=== PATIENT | male | born 1950 | race Caucasian/White ===

== ENCOUNTER 2016-08-22 18:08 | Outpatient (CLI) | payer MEDICARE | END 2016-08-22 18:09 | disposition home or self-care (01) | DX: M79.605 Pain in left leg (principal) ==

== ENCOUNTER 2016-09-14 15:59 | Emergency (ER) | payer MEDICARE ==
[2016-09-14] MEDS ORDERED: ONDANSETRON ODT 4 MG TABLET TL STA (17:39)
[2016-09-14] MEDS ORDERED: ONDANSETRON ODT 4 MG TABLET ONE (17:42)
== END 2016-09-14 17:53 | disposition home or self-care (01) ==
DX: R53.1 Weakness (principal); R53.81 Other malaise; R11.0 Nausea; R35.0 Frequency of micturition; R03.0 Elevated blood-pressure reading, without diagnosis of hypertension; E11.9 Type 2 diabetes mellitus without complications; Z79.4 Long term (current) use of insulin; F17.200 Nicotine dependence, unspecified, uncomplicated
CPT/HCPCS: 36415; 80053; 81001; 82009; 83690; 83735; 84484; 85025; 87275; 87276; 93005; 93010; 99284; Q0162

== ENCOUNTER 2016-11-23 07:55 | Outpatient (CLI) | payer MEDICARE | END 2016-11-23 07:56 | disposition home or self-care (01) | DX: E11.9 Type 2 diabetes mellitus without complications (principal) ==

== ENCOUNTER 2017-02-19 15:20 | Outpatient (CLI) | payer MEDICARE | END 2017-02-19 15:21 | disposition home or self-care (01) | DX: E11.65 Type 2 diabetes mellitus with hyperglycemia (principal) ==

== ENCOUNTER 2017-03-01 10:14 | Outpatient (CLI) | payer MEDICARE ==
--- NOTE | 2017-03-01 15:51 | XRAY Report ---
RIGHT HIP AND PELVIS: 03/01/2017 CLINICAL INDICATION: Pain. FINDINGS: Frontal view of the hips and pelvis and frogleg lateral view of the right hip demonstrate moderate osteoarthritis. There is no evidence of acute fracture or dislocation. No radiopaque foreign body is seen in the soft tissues. IMPRESSION: MODERATE OSTEOARTHRITIS. JOB #: [id number] EXT JOB #:[id number]
== END 2017-03-01 10:15 | disposition home or self-care (01) ==
LOC: DI 10:14
PROVIDERS: ATTEND Internal Medicine
DX: M16.11 Unilateral primary osteoarthritis, right hip (principal)

== ENCOUNTER 2017-07-10 14:26 | Outpatient (CLI) | payer MEDICARE ==
--- NOTE | 2017-07-10 18:43 | XRAY Report ---
THREE VIEW LUMBAR SPINE: 07/10/2017 CLINICAL INDICATION: Chronic back pain. AP, lateral, coned-down views of the lumbar spine demonstrate moderate degenerative disk and facet di sease. There is osseous fusion of the L1-2 disk space. The bowel gas pattern is unremarkable. IMPRESSION: MODERATE DEGENERATIVE CHANGES. NO EVIDENCE OF ACUTE FRACTURE. JOB #: [id number] EXT JOB #:[id number]
== END 2017-07-10 14:27 | disposition home or self-care (01) ==
LOC: DI 14:26
PROVIDERS: ATTEND Nurse Practitioner Primary Care
DX: M51.36 Other intervertebral disc degeneration, lumbar region (principal); M47.896 Other spondylosis, lumbar region
CPT/HCPCS: 72100

== ENCOUNTER 2017-07-13 12:53 | Outpatient (CLI) | payer MEDICARE | END 2017-07-13 12:54 | disposition home or self-care (01) | LOC: DI 12:53 | PROVIDERS: ATTEND Nurse Practitioner Primary Care | DX: Z53.9 Procedure and treatment not carried out, unspecified reason (principal) ==

== ENCOUNTER 2017-09-24 08:00 | Outpatient (CLI) | payer MEDICARE ==
[2017-09-24 18:34] LABS: HB2 TOTAL 12.4 g/dL; HEMOGLOBIN A1C 0.99 g/dL; HEMOGLOBIN A1C % 9.5 % (4.6-6.2)
== END 2017-09-24 08:01 | disposition home or self-care (01) ==
LOC: LAB.R 08:00
PROVIDERS: ATTEND Internal Medicine
DX: E11.65 Type 2 diabetes mellitus with hyperglycemia (principal)
CPT/HCPCS: 83036

== ENCOUNTER 2018-01-22 08:00 | Outpatient (CLI) | payer MEDICARE ==
[2018-01-22 14:26] LABS: ALT ALANINE AMINOTRANSFERASE 28 IU/L (10-60); AST ASPARTATE AMINOTRANSFERASE 25 IU/L (10-42); CHOL/HDL RATIO 3.5 (<5.0); CHOLESTEROL 134 mg/dL; HDL CHOLESTEROL 38 mg/dL; LDL CHOLESTEROL,CALCULATED 65 mg/dL; LDL/HDL RATIO 1.7 (<3.6); VLDL CHOLESTEROL 31 mg/dL
[2018-01-22 14:28] LABS: HB2 TOTAL 13.7 g/dL; HEMOGLOBIN A1C 0.8 g/dL; HEMOGLOBIN A1C % 7.5 % (4.6-6.2)
== END 2018-01-22 08:01 | disposition home or self-care (01) ==
LOC: LAB.R 08:00
PROVIDERS: ATTEND Internal Medicine
DX: E11.65 Type 2 diabetes mellitus with hyperglycemia (principal); E78.5 Hyperlipidemia, unspecified
CPT/HCPCS: 80061; 83036; 83721; 84450; 84460

== ENCOUNTER 2018-04-02 08:00 | Outpatient (CLI) | payer MEDICARE | END 2018-04-02 08:01 | LOC: LAB.R 08:00 | PROVIDERS: ATTEND Physician Assistant Medical | DX: J02.9 Acute pharyngitis, unspecified (principal) | CPT/HCPCS: 87070 ==

== ENCOUNTER 2018-05-22 15:08 | Outpatient (CLI) | payer MEDICARE ==
[2018-05-22 18:56] LABS: HB2 TOTAL 12.6 g/dL; HEMOGLOBIN A1C 0.73 g/dL; HEMOGLOBIN A1C % 7.5 % (4.6-6.2)
== END 2018-05-22 15:09 | disposition home or self-care (01) ==
LOC: LAB.R 15:08
PROVIDERS: ATTEND Internal Medicine
DX: E11.65 Type 2 diabetes mellitus with hyperglycemia (principal)
CPT/HCPCS: 83036

== ENCOUNTER 2018-05-22 16:54 | Outpatient (CLI) | payer MEDICARE ==
--- NOTE | 2018-05-23 11:47 | XRAY Report ---
Reason: FOREARM PAIN,LEFT Procedure Date: 05/22/2018 Accession Number: [id number] / [id number] Procedure: XR - Wrist 2 View LT CPT Code: FULL RESULT: EXAM: LEFT WRIST RADIOGRAPHY EXAM DATE: 05/22/2018 05:06 PM. CLINICAL HISTORY: Forearm pain, left. COMPARISON: None. TECHNIQUE: 2 views. FINDINGS: Bones: Normal. No fractures or bone lesions. Joints: Normal. No subluxations. Soft Tissues: Normal. No soft tissue swelling. IMPRESSION: No fracture or dislocation. RADIA
--- NOTE | 2018-05-23 11:47 | XRAY Report ---
Reason: FOREARM PAIN,LEFT Procedure Date: 05/22/2018 Accession Number: [id number] / [id number] Procedure: XR - Forearm LT CPT Code: FULL RESULT: EXAM: LEFT FOREARM RADIOGRAPHY EXAM DATE: 05/22/2018 05:06 PM. CLINICAL HISTORY: Forearm pain, left. COMPARISON: None. TECHNIQUE: 2 views. FINDINGS: Bones: Normal. No fractures or bone lesions. Joints: Normal. No effusions or subluxations in the visualized wrist or elbow joints. Soft Tissues: Normal. No soft tissue swelling. IMPRESSION: Normal forearm radiography. RADIA
== END 2018-05-22 16:55 | disposition home or self-care (01) ==
LOC: DI 16:54
PROVIDERS: ATTEND Nurse Practitioner Primary Care
DX: M79.632 Pain in left forearm (principal); S59.912A Unspecified injury of left forearm, initial encounter; E11.65 Type 2 diabetes mellitus with hyperglycemia
CPT/HCPCS: 83036

== ENCOUNTER 2018-11-29 19:27 | Emergency (ER) | payer MEDICARE ==
--- NOTE | 2018-11-29 20:05 | ED Physician Documentation ---
History of Present Illness - Stated complaint Stated Complaint: ANXIETY ATTACK - Chief complaint Chief Complaint: MHE - History obtained from History obtained from: Patient - History of Present Illness Timing: How many days ago (4) - Additonal information Additional information: 68-year-old male who is been taking Ativan for some time on a as needed basis up to 3 mg a day some days not at all has been out of his Ativan for 4 days. His physician retired and despite multiple calls to the clinic they were unable to secure a supply of medication. The patient is come to the emergency department this evening unable to sleep for the past 2 nights and having a variety of symptoms. Review of Systems Constitutional: denies: Fever Eyes: denies: Decreased vision Ears: denies: Ear pain Nose: denies: Rhinorrhea / runny nose, Congestion Throat: denies: Sore throat Cardiac: denies: Chest pain / pressure, Palpitations Respiratory: denies: Dyspnea, Cough GI: reports: Abdominal Pain, Nausea. denies: Vomiting : denies: Dysuria, Frequency Skin: denies: Rash Musculoskeletal: denies: Neck pain, Back pain Neurologic: denies: Generalized weakness, Focal weakness, Numbness Psychiatric: reports: Insomnia PD PAST MEDICAL HISTORY - Past Medical History Cardiovascular: None Respiratory: None Endocrine/Autoimmune: Type 2 diabetes : Kidney stones Psych: Anxiety - Past Surgical History Past Surgical History: Yes - Present Medications Home Medications: Ambulatory Orders Medication Instructions Recorded Confirmed Insulin Aspart (Vial) [NovoLOG] 16 unit SQ TID 09/05/13 09/14/16 Insulin Glargine [Lantus] 20 unit SUBQ QPM 09/05/13 09/14/16 LORazepam INTENSOL [Ativan] 1 mg PO 09/05/13 09/05/13 Lisinopril 20 mg PO DAILY 09/05/13 09/14/16 Oxycodone HCl/Acetaminophen 2 each PO 3-4XD 09/05/13 09/14/16 [Percocet 10-325 mg Tablet] Pravastatin Sodium [Pravachol] 80 mg PO DAILY 09/05/13 09/14/16 metFORMIN [Glucophage] 1,000 mg PO BID 09/05/13 09/14/16 oxyCODONE ER [OxyCONTIN] 80 mg PO Q12HR 09/05/13 09/14/16 Amlodipine Besylate 2.5 mg PO DAILY 12/21/13 09/14/16 Tamsulosin [Flomax] 0.4 mg BID 09/14/16 09/14/16 LORazepam [Ativan] 1 mg PO Q6HR PRN #12 tablet 11/29/18 - Allergies Allergies/Adverse Reactions: Allergies Allergy/AdvReac Type Severity Reaction Status Date / Time No Known Drug Allergies Allergy Verified 09/14/16 16:13 - Social History Does the pt smoke?: Yes Smoking Status: Current every day smoker Does the pt drink ETOH?: No Does the pt have substance abuse?: No - Immunizations Immunizations are current?: No - POLST Patient has POLST: No PD ED PE NORMAL - Vitals Vital signs reviewed: Yes (hypertnesive marked) - General General: Alert and oriented X 3, No acute distress, Well developed/nourished - HEENT HEENT: Atraumatic, PERRL, EOMI - Neck Neck: Supple, no meningeal sign, No bony TTP - Cardiac Cardiac: RRR, No murmur - Respiratory Respiratory: No respiratory distress, Clear bilaterally - Abdomen Abdomen: Soft, Non tender - Back Back: No CVA TTP, No spinal TTP - Derm Derm: Normal color, Warm and dry, No rash - Extremities Extremities: No deformity, No edema - Neuro Neuro: Alert and oriented X 3, tele rn 2-12 intact, No motor deficit, No sensory deficit, Normal speech Eye Opening: Spontaneous Motor: Obeys Commands Verbal: Oriented GCS Score: 15 - Psych Psych: Normal mood, Normal affect Results - Vitals Vitals: Vital Signs - 24 hr 11/29/18 19:39 Temperature 37.1 C Heart Rate 86 Respiratory 20 Rate Blood Pressure 223/100 H O2 Saturation 97 Oxygen O2 Source Room air PD MEDICAL DECISION MAKING - ED course Complexity details: considered differential, d/w patient, d/w family ED course: 68-year-old male 4 days without Ativan appears well on exam, has complaints of feeling quite off and appears to have symptoms consistent with benzodiazepine withdrawal. He is administered Ativan orally, we will provide a short course until he is able to get into see his physician on the . Departure - Departure Disposition: 01 Home, Self Care Clinical Impression: Benzodiazepine withdrawal Qualifiers: Complication of substance-induced condition: uncomplicated Qualified Code(s): F13.230 - Sedative, hypnotic or anxiolytic dependence with withdrawal, uncomplicated Condition: Stable Instructions: ED Withdrawal Benzodiazepine Follow-Up: Christian Colon MD [Primary Care Provider] - Prescriptions: LORazepam [Ativan] 1 mg PO Q6HR PRN #12 tablet PRN Reason: Anxiety
[2018-11-29] MEDS ORDERED: LORazepam 1 MG TABLET PO STA (20:09)
[2018-11-29 20:20] VITALS: BP 206/88
== END 2018-11-29 20:22 | disposition home or self-care (01) ==
LOC: ED 19:27
DX: F13.230 Sedative, hypnotic or anxiolytic dependence with withdrawal, uncomplicated (principal); T42.4X6A Underdosing of benzodiazepines, initial encounter; Z91.138 Patient's unintentional underdosing of medication regimen for other reason; E11.9 Type 2 diabetes mellitus without complications; Z79.4 Long term (current) use of insulin; F17.200 Nicotine dependence, unspecified, uncomplicated
CPT/HCPCS: 99281; 99283; J8499

== ENCOUNTER 2019-01-09 08:35 | Outpatient (CLI) | payer MEDICARE ==
[2019-01-09 09:18] LABS: ALBUMIN 3.7 g/dL (3.2-5.5); ALKALINE PHOSPHATASE 72 IU/L (42-121); ALT ALANINE AMINOTRANSFERASE 34 IU/L (10-60); AST ASPARTATE AMINOTRANSFERASE 28 IU/L (10-42); BILIRUBIN,TOTAL 0.5 mg/dL (0.2-1.0); BUN - BLOOD UREA NITROGEN 34 mg/dL (6-20); CALCIUM 8.4 mg/dL (8.5-10.3); CARBON DIOXIDE - CO2 25 mmol/L (21-32); CHLORIDE 100 mmol/L (101-111); CHOLESTEROL 147 mg/dL; CREATININE 1.6 mg/dL (0.6-1.2); GFR - MDRD 43 (>89); GLUCOSE 268 mg/dL (70-100); HB2 TOTAL 13.6 g/dL; HDL CHOLESTEROL 37 mg/dL; HEMOGLOBIN A1C 0.98 g/dL; HEMOGLOBIN A1C % 8.7 % (4.6-6.2); LDL CHOLESTEROL,CALCULATED 83 mg/dL; LDL/HDL RATIO 2.2 (<3.6); SODIUM 138 mmol/L (135-145); TOTAL PROTEIN 7.3 g/dL (6.7-8.2); VLDL CHOLESTEROL 27 mg/dL
== END 2019-01-09 08:36 | disposition home or self-care (01) ==
LOC: LAB 08:35
PROVIDERS: ATTEND Family Medicine
DX: E11.9 Type 2 diabetes mellitus without complications (principal); I10 Essential (primary) hypertension
CPT/HCPCS: 36415; 80053; 80061; 83036; 83721

== ENCOUNTER 2019-05-01 11:57 | Emergency (ER) | payer MEDICARE ==
[2019-05-01 12:13] VITALS: BP 182/70
[2019-05-01] MEDS ORDERED: LORazepam 1 MG TABLET PO STA (13:18)
--- NOTE | 2019-05-01 13:20 | ED Physician Documentation ---
History of Present Illness - Stated complaint Stated Complaint: Med Refill - Chief complaint Chief Complaint: Neuro - History obtained from History obtained from: Patient, Family () - Additonal information Additional information: The patient is a 68-year-old male who complains of anxiety, with an anxiety attack last night. He normally takes lorazepam, up to 2 mg 3 times daily, but ran out of his medication 2 days ago. His current prescription is not due to be filled until 4 days from now. He has been taking lorazepam on a daily basis for several years. Review of his medical records reveals a similar presentation 5 months ago. Review of Systems Constitutional: denies: Fever Nose: denies: Congestion Throat: denies: Sore throat Cardiac: denies: Chest pain / pressure Respiratory: denies: Dyspnea, Cough GI: reports: Nausea. denies: Abdominal Pain, Vomiting : denies: Dysuria Skin: denies: Rash Neurologic: reports: Headache (mild). denies: Focal weakness, Numbness Psychiatric: reports: Anxiety, Insomnia PD PAST MEDICAL HISTORY - Past Medical History Past Medical History: Yes Cardiovascular: None Respiratory: None Endocrine/Autoimmune: Type 2 diabetes : Kidney stones Psych: Anxiety - Past Surgical History Past Surgical History: Yes - Present Medications Home Medications: Ambulatory Orders Medication Instructions Recorded Confirmed Insulin Aspart (Vial) [NovoLOG] 16 unit SQ TID 09/05/13 09/14/16 Insulin Glargine [Lantus] 20 unit SUBQ QPM 09/05/13 09/14/16 LORazepam INTENSOL [Ativan] 1 mg PO 09/05/13 09/05/13 Lisinopril 20 mg PO DAILY 09/05/13 09/14/16 Oxycodone HCl/Acetaminophen 2 each PO 3-4XD 09/05/13 09/14/16 [Percocet 10-325 mg Tablet] Pravastatin Sodium [Pravachol] 80 mg PO DAILY 09/05/13 09/14/16 metFORMIN [Glucophage] 1,000 mg PO BID 09/05/13 09/14/16 oxyCODONE ER [OxyCONTIN] 80 mg PO Q12HR 09/05/13 09/14/16 Amlodipine Besylate 2.5 mg PO DAILY 12/21/13 09/14/16 Tamsulosin [Flomax] 0.4 mg BID 09/14/16 09/14/16 LORazepam [Ativan] 1 mg PO Q6HR PRN #12 tablet 11/29/18 diazePAM [Diazepam] 5 - 10 mg PO TID PRN #20 tablet 05/01/19 - Allergies Allergies/Adverse Reactions: Allergies Allergy/AdvReac Type Severity Reaction Status Date / Time No Known Drug Allergies Allergy Verified 05/01/19 12:07 - Social History Does the pt smoke?: Yes Smoking Status: Current every day smoker Does the pt drink ETOH?: No Does the pt have substance abuse?: No - Immunizations Immunizations are current?: No - POLST Patient has POLST: No PD ED PE NORMAL - Vitals Vital signs reviewed: Yes (Systolic hypertension.) - General General: Alert and oriented X 3, Well developed/nourished, Other (Overweight and anxious appearing.) - HEENT HEENT: Atraumatic, EOMI, Moist mucous membranes - Neck Neck: No adenopathy, No JVD - Cardiac Cardiac: RRR - Respiratory Respiratory: No respiratory distress, Clear bilaterally - Abdomen Abdomen: Soft, Non tender, Other (Rotund abdomen.) - Back Back: No CVA TTP - Derm Derm: No rash - Extremities Extremities: No edema, No calf tenderness / cord - Neuro Neuro: Alert and oriented X 3, No motor deficit, Normal speech Results - Vitals Vitals: Oxygen O2 Source Room air PD MEDICAL DECISION MAKING - ED course Complexity details: reviewed old records, considered differential, d/w patient, d/w family ED course: The patient's presentation is most consistent with benzodiazepine withdrawal, including hypertension, anxiety, and mild headache. When I queried him about overusing his normal prescription of lorazepam, he responds that he had taken a few pills out of his bottle and put them in his car to have if needed, but is now unable to find them. Treatment in the emergency department included administration of lorazepam 1 mg orally. He is being discharged with a small quantity of dirazepam to last until his new prescription for lorazepam is filled in 4 days. I discussed with him and his the importance of outpatient follow-up, suggesting the possibility of weaning himself down from his current dose of lorazepam, as well as discussing potentially worrisome signs or symptoms that should prompt reevaluation in the emergency department. Departure - Departure Disposition: 01 Home, Self Care Clinical Impression: Benzodiazepine withdrawal Qualifiers: Complication of substance-induced condition: uncomplicated Qualified Code(s): F13.230 - Sedative, hypnotic or anxiolytic dependence with withdrawal, uncomplicated Condition: Stable Instructions: ED Withdrawal Benzodiazepine Follow-Up: Christian Colon MD [Primary Care Provider] - Prescriptions: diazePAM [Diazepam] 5 - 10 mg PO TID PRN #20 tablet PRN Reason: Anxiety Comments: You can use diazepam as prescribed if needed until able to fill your lorazepam prescription. Follow-up with your primary physician as planned. Return to the emergency department if you develop increasing anxiety, or otherwise worsening symptoms. Discharge Date/Time: 05/01/19 13:31
== END 2019-05-01 13:31 | disposition home or self-care (01) ==
LOC: ED 11:57
DX: F13.230 Sedative, hypnotic or anxiolytic dependence with withdrawal, uncomplicated (principal); F41.9 Anxiety disorder, unspecified; R51 Headache; R11.0 Nausea; E11.9 Type 2 diabetes mellitus without complications; Z79.4 Long term (current) use of insulin; F17.200 Nicotine dependence, unspecified, uncomplicated
CPT/HCPCS: 99282; 99283; J8499

== ENCOUNTER 2019-05-06 18:03 | Outpatient (CLI) | payer MEDICARE ==
[2019-05-06 18:16] LABS: BASOPHILS # (AUTO) 0.1 10^3/uL (0.0-0.1); BASOPHILS % (AUTO) 0.9 %; EOSINOPHILS # (AUTO) 0.3 10^3/uL (0.0-0.7); EOSINOPHILS % (AUTO) 4.4 %; HGB - HEMOGLOBIN 11.5 g/dL (14.0-18.0); LYMPHOCYTES # (AUTO) 1.9 10^3/uL (1.5-3.5); LYMPHOCYTES % (AUTO) 25.6 %; MEAN CORPUSCULAR HEMOGLOBIN 32.1 pg (27.0-31.0); MEAN CORPUSCULAR HGB CONC 32.9 g/dL (32.0-36.0); MEAN CORPUSCULAR VOLUME 97.8 fL (80.0-94.0); MEAN PLATELET VOLUME 8.8 fL (7.4-11.4); MONOCYTES # (AUTO) 0.6 10^3/uL (0.0-1.0); MONOCYTES % (AUTO) 8.3 %; NEUTROPHILS # (AUTO) 4.6 10^3/uL (1.5-6.6); NEUTROPHILS % (AUTO) 60.4 %; PLT - PLATELET COUNT 221 10^3/uL (130-450); RED BLOOD COUNT 3.58 10^6/uL (4.70-6.10); RED CELL DISTRIBUTION WIDTH 12.8 % (12.0-15.0); WHITE BLOOD COUNT 7.6 x10^3/uL (4.8-10.8)
[2019-05-06 18:33] LABS: ALBUMIN 3.5 g/dL (3.2-5.5); ALBUMIN/GLOBULIN RATIO 0.9 (1.0-2.2); BILIRUBIN,TOTAL 0.4 mg/dL (0.2-1.0); CALCIUM 8.5 mg/dL (8.5-10.3); CREATININE 2.2 mg/dL (0.6-1.2); TOTAL PROTEIN 7.4 g/dL (6.7-8.2)
[2019-05-06 18:41] LABS: HB2 TOTAL 11.4 g/dL; HEMOGLOBIN A1C 0.95 g/dL; HEMOGLOBIN A1C % 9.8 % (4.6-6.2)
== END 2019-05-06 18:04 | disposition home or self-care (01) ==
LOC: LAB 18:03
PROVIDERS: ATTEND Family Medicine
DX: Z79.899 Other long term (current) drug therapy (principal); E11.9 Type 2 diabetes mellitus without complications
CPT/HCPCS: 36415; 80053; 83036; 85025

== ENCOUNTER 2019-08-18 07:21 | Outpatient (CLI) | payer MEDICARE | END 2019-08-18 07:22 | disposition critical access hospital (66) | LOC: EMS 07:21 | PROVIDERS: ATTEND Surgery | DX: R10.9 Unspecified abdominal pain (principal); M54.5 Low back pain; R11.0 Nausea | CPT/HCPCS: A0425; A0429 ==

== ENCOUNTER 2019-08-18 07:28 | Emergency (ER) | payer MEDICARE ==
--- NOTE | 2019-08-18 07:33 | ED Physician Documentation ---
PD HPI ABD PAIN - Stated complaint Stated Complaint: L BACK/ FLANK PX - History obtained from History obtained from: Patient - History of Present Illness Timing - onset: Today (at 4:30 AM) Timing - duration: Hours (3) Timing - details: Abrupt onset, Still present Quality: Aching, Sharp, Pain Location: LLQ Radiation: Left flank Improved by: No: Eating, Laying still Worsened by: Moving, Palpation. No: Eating, Breathing, Position Associated symptoms: Nausea, Loss of appetite. No: Fever, Vomiting, Diarrhea, Constipation, Dysuria, Hematuria Similar symptoms before: Diagnosis (He has had kidney stones in the past but has been several years. No history of diverticulitis) Recently seen: Not recently seen Review of Systems Constitutional: denies: Fever, Chills, Myalgias Nose: denies: Rhinorrhea / runny nose, Congestion Throat: denies: Sore throat Respiratory: denies: Cough GI: reports: Abdominal Pain, Nausea. denies: Vomiting, Diarrhea : denies: Dysuria, Frequency Skin: denies: Rash, Lesions Musculoskeletal: reports: Back pain (Chronic back pain for which she uses daily long-acting pain medicine OxyContin) Neurologic: denies: Generalized weakness, Focal weakness, Numbness, Near syncope PD PAST MEDICAL HISTORY - Past Medical History Cardiovascular: None Respiratory: None Neuro: None Endocrine/Autoimmune: Type 2 diabetes : Kidney stones Psych: Anxiety - Past Surgical History Past Surgical History: Yes - Present Medications Home Medications: Ambulatory Orders Medication Instructions Recorded Confirmed Insulin Aspart (Vial) [NovoLOG] 16 unit SQ TID 09/05/13 09/14/16 Insulin Glargine [Lantus] 20 unit SUBQ QPM 09/05/13 09/14/16 LORazepam INTENSOL [Ativan] 1 mg PO 09/05/13 09/05/13 Lisinopril 20 mg PO DAILY 09/05/13 09/14/16 Oxycodone HCl/Acetaminophen 2 each PO 3-4XD 09/05/13 09/14/16 [Percocet 10-325 mg Tablet] Pravastatin Sodium [Pravachol] 80 mg PO DAILY 09/05/13 09/14/16 metFORMIN [Glucophage] 1,000 mg PO BID 09/05/13 09/14/16 oxyCODONE ER [OxyCONTIN] 80 mg PO Q12HR 09/05/13 09/14/16 Amlodipine Besylate 2.5 mg PO DAILY 12/21/13 09/14/16 Tamsulosin [Flomax] 0.4 mg BID 09/14/16 09/14/16 LORazepam [Ativan] 1 mg PO Q6HR PRN #12 tablet 11/29/18 diazePAM [Diazepam] 5 - 10 mg PO TID PRN #20 tablet 05/01/19 Naproxen 375 mg PO BID #15 tablet 08/18/19 Ondansetron Odt [Zofran] 4 mg TL Q6H PRN #15 tablet 08/18/19 Oxycodone HCl/Acetaminophen 1 each PO Q6H PRN #15 tablet 08/18/19 [Oxycodone-Acetaminophen 10-325] Tamsulosin [Flomax] 0.4 mg PO DAILY #5 capsule 08/18/19 - Allergies Allergies/Adverse Reactions: Allergies Allergy/AdvReac Type Severity Reaction Status Date / Time No Known Drug Allergies Allergy Verified 05/01/19 12:07 - Social History Does the pt smoke?: Yes Smoking Status: Current every day smoker Does the pt drink ETOH?: No Does the pt have substance abuse?: No - Immunizations Immunizations are current?: No - POLST Patient has POLST: No PD ED PE NORMAL - Vitals Vital signs reviewed: Yes - General General: Alert and oriented X 3, No acute distress, Well developed/nourished - HEENT HEENT: Atraumatic - Neck Neck: Supple, no meningeal sign, No adenopathy - Cardiac Cardiac: RRR, No murmur - Respiratory Respiratory: Clear bilaterally - Abdomen Abdomen: Normal bowel sounds, Soft, Non distended, No organomegaly, Other (Some left mid to lower abdominal tenderness to palpation but not to percussion and there is no rebound nor guarding. There is some left CVA tenderness as well as some tenderness in the muscles at the left flank. There is no spinous tenderness. No rash redness or sores noted.) - Male Male : Deferred - Rectal Rectal: Deferred - Derm Derm: Normal color, Warm and dry, No rash - Extremities Extremities: No deformity, No tenderness to palpate, No edema, No calf tenderness / cord - Neuro Neuro: Alert and oriented X 3, No motor deficit, No sensory deficit, Normal speech Results - Vitals Vitals: Vital Signs - 24 hr 08/18/19 08/18/19 08/18/19 07:35 08:46 08:50 Temperature 36.6 C Heart Rate 62 79 Respiratory 18 18 16 Rate Blood Pressure 227/91 H 194/95 H O2 Saturation 96 96 87 L 08/18/19 08/18/19 08:51 10:32 Temperature Heart Rate 80 Respiratory 18 Rate Blood Pressure 169/77 H O2 Saturation 93 94 Oxygen O2 Source Room air - Labs Labs: Laboratory Tests 08/18/19 08/18/19 08/18/19 08:47 08:54 08:54 WBC 11.4 H RBC 3.90 L Hgb 12.3 L Hct 37.8 L MCV 96.9 H MCH 31.5 H MCHC 32.5 RDW 12.7 Plt Count 199 MPV 8.7 Neut # (Auto) 9.4 H Lymph # (Auto) 1.0 L [place] # (Auto) 0.7 Eos # (Auto) 0.2 Baso # (Auto) 0.1 Absolute Nucleated RBC 0.00 Nucleated RBC % 0.0 Sodium 140 Potassium 4.1 Chloride 104 Carbon Dioxide 27 Anion Gap 9.0 BUN 38 H Creatinine 1.6 H Estimated GFR (MDRD) 43 L Glucose 202 H Calcium 8.3 L Total Bilirubin 0.6 AST 27 ALT 29 Alkaline Phosphatase 71 Total Protein 7.0 Albumin 3.6 Globulin 3.4 Albumin/Globulin Ratio 1.1 Lipase 34 Urine Color YELLOW Urine Clarity HAZY Urine pH 6.5 Ur Specific [place] 1.015 Urine Protein 30 H Urine Glucose (UA) 100 H Urine Ketones NEGATIVE Urine Occult Blood LARGE H Urine Nitrite NEGATIVE Urine Bilirubin NEGATIVE Urine Urobilinogen 0.2 (NORMAL) Ur Leukocyte Esterase NEGATIVE Urine RBC TNTC H Urine WBC 0-3 Ur Squamous Epith Cells RARE Squamous Urine Bacteria Rare Ur Microscopic Review INDICATED Urine Culture Comments NOT INDICATED - Rads (name of study) KUB CT Radiology: Prelim report reviewed, EMP read contemporaneously (3 to 4 mm stone at the proximal third left ureter with some moderate hydronephrosis.), See rad report PD MEDICAL DECISION MAKING - ED course Complexity details: reviewed results (3-4 mm stone left proximal third ureter. ), re-evaluated patient (pain improved well after IV meds. ), considered differential, d/w patient Departure - Departure Disposition: 01 Home, Self Care Clinical Impression: Left sided abdominal pain, Ureterolithiasis Condition: Stable Record reviewed to determine appropriate education?: Yes Instructions: ED Stone Renal W Colic Follow-Up: Christian Colon MD [Primary Care Provider] - John Humphries MD [Provider Admit Priv/Credential] - Prescriptions: Naproxen 375 mg PO BID #15 tablet Ondansetron Odt [Zofran] 4 mg TL Q6H PRN #15 tablet PRN Reason: Nausea / Vomiting Oxycodone HCl/Acetaminophen [Oxycodone-Acetaminophen 10-325] 1 each PO Q6H PRN #15 tablet PRN Reason: Pain Tamsulosin [Flomax] 0.4 mg PO DAILY #5 capsule Comments: Continue usual medications. Add naproxen anti-inflammatory twice daily for the next several days till improved. Take it with food. Ondansetron if needed for nausea. Tamsulosin daily for the next several days to help reduce ureteral spasms and promote stone passage. Add Tylenol 4 times a day or oxycodone as needed for pains in addition to usual long-acting pain medicine. I would anticipate passage of the stone over the next several days as the majority of stones of your size will pass in 2 to 3-day timeframe. Follow-up with your primary care or urology if not improved over that timeframe and return sooner if worse. Discharge Date/Time: 08/18/19 10:40
[2019-08-18] MEDS ORDERED: HYDROmorphone 2 MG/ML VIAL IVP STA (08:01)
[2019-08-18] MEDS ORDERED: KETOROLAC 30 MG/ML VIAL IVP STA (08:01)
[2019-08-18] MEDS ORDERED: SODIUM CHLORIDE 0.9% 1,000 ML IV ONE (08:01)
[2019-08-18] MEDS ORDERED: ONDANSETRON 4 MG/2 ML VIAL IVP STA (08:33)
[2019-08-18] MEDS ORDERED: LIDOCAINE-MPF 2% 9 ML in SODIUM CHLORIDE 0.9% 50 ML IV STA (08:37)
[2019-08-18 08:59] LABS: BASOPHILS # (AUTO) 0.1 10^3/uL (0.0-0.1); BASOPHILS % (AUTO) 0.5 %; EOSINOPHILS # (AUTO) 0.2 10^3/uL (0.0-0.7); EOSINOPHILS % (AUTO) 1.4 %; HGB - HEMOGLOBIN 12.3 g/dL (14.0-18.0); MEAN CORPUSCULAR HEMOGLOBIN 31.5 pg (27.0-31.0); MEAN CORPUSCULAR HGB CONC 32.5 g/dL (32.0-36.0); MEAN CORPUSCULAR VOLUME 96.9 fL (80.0-94.0); MEAN PLATELET VOLUME 8.7 fL (7.4-11.4); MONOCYTES # (AUTO) 0.7 10^3/uL (0.0-1.0); MONOCYTES % (AUTO) 6.1 %; NEUTROPHILS # (AUTO) 9.4 10^3/uL (1.5-6.6); NEUTROPHILS % (AUTO) 82.5 %; PLT - PLATELET COUNT 199 10^3/uL (130-450); RED CELL DISTRIBUTION WIDTH 12.7 % (12.0-15.0); WHITE BLOOD COUNT 11.4 x10^3/uL (4.8-10.8)
[2019-08-18 09:00] LABS: BILIRUBIN,URINE NEGATIVE (NEGATIVE); GLUCOSE, URINE (UA) 100 mg/dL (NEGATIVE); KETONES,URINE (UA) NEGATIVE (NEGATIVE); LEUKOCYTE ESTERASE, URINE NEGATIVE (NEGATIVE); NITRITE,URINE NEGATIVE (NEGATIVE); OCCULT BLOOD,URINE LARGE (NEGATIVE); PH,URINE 6.5 PH (5.0-7.5); PROTEIN,URINE 30 mg/dL (NEGATIVE); UROBILINOGEN,URINE 0.2 (NORMAL) E.U./dL (NORMAL)
--- NOTE | 2019-08-18 09:05 | CT Report ---
Reason: left flank/abd pain overnight Procedure Date: 08/18/2019 Accession Number: [id number] / [id number] Procedure: CT - Abdomen/Pelvis WO CPT Code: Final Report FULL RESULT: EXAM: CT ABDOMEN AND PELVIS (CT KUB) EXAM DATE: 08/18/2019 08:32 AM. CLINICAL HISTORY: Left flank/abdominal pain overnight. COMPARISONS: CT ABD AND PELVIS W/O CONTRAST 10/28/2012. TECHNIQUE: Routine axial helical CT imaging was performed through the abdomen and pelvis without IV contrast. Reconstructions: Coronal and sagittal. In accordance with CT protocol optimization, one or more of the following dose reduction techniques were utilized for this exam: automated exposure control, adjustment of mA and/or KV based on patient size, or use of iterative reconstructive technique. FINDINGS: Lung Bases: Coronary calcifications are noted. No cardiac enlargement. Mild dependent atelectasis. Right Kidney/Ureter: At least 5 nonobstructing right-sided renal stones. Largest stone is in the inferior right kidney measuring 1.5 x 0.8 cm. Additional 0.6 cm right mid to anterior renal nonobstructing stone. No hydronephrosis, hydroureter or perinephric fat stranding. Left Kidney/Ureter: 0.3 cm mid left ureteral stone results in moderate hydroureter and hydronephrosis. Moderate perinephric fat stranding. No contour deforming renal mass noted. At least 4 nonobstructing left sided renal stones, the largest stones including a 0.5 cm inferior left and 0.7 cm mid left renal stone. No additional obstructing ureteral stones. Other Solid Organs: Small calcific densities are noted in the spleen. No associated mass. Normal liver, gallbladder, common bile duct, pancreas and bilateral adrenal glands. Gallbladder/Bile Ducts: See above. Peritoneal Cavity: No free fluid, free air or esau adenopathy. Bowel is grossly unremarkable. There are multiple diverticula seen which most severely affect the sigmoid colon. No wall thickening or adjacent inflammation seen. No obstruction noted. The appendix is well visualized and normal. Remaining stomach, small bowel and large bowel are normal. Persistent diastasis of the anterior rectus muscles in the midline. No inguinal or significant umbilical hernia. Pelvic Organs: No bladder stones or wall thickening. Noncontrast images of the visualized pelvic organs are unremarkable. Vasculature: Diffuse atheromatous plaques are present in the abdominal aorta and branch vessels. No aneurysm. Normal IVC. Bones: Persistent stable lucent defects in inferior L4 vertebral body and posterior L3 vertebral body. No new osteoblastic or osteolytic lesions. Diffuse degenerative disk disease noted in the thoracic and lumbar spine. Rotatory lumbar scoliosis and thoracolumbar junction scoliosis. Other: None. IMPRESSION: 1. Obstructing 0.3 cm mid left renal stone results in moderate left hydroureter and hydronephrosis. 2. Bilateral nonobstructing renal stones. No obstructing right renal stone. No contour-deforming renal mass in either kidney on this [id number] CT. 3. Diverticulosis. Normal appendix. No inflammation. RADIA
[2019-08-18 09:09] LABS: CLARITY,URINE HAZY (CLEAR)
[2019-08-18 09:12] LABS: BACTERIA,URINE Rare /HPF (None Seen); RBC,URINE TNTC /HPF (0-5); SQUAMOUS EPITHELIAL CELL,UR RARE Squamous (<= Few)
[2019-08-18 09:15] LABS: ALBUMIN 3.6 g/dL (3.2-5.5); ALBUMIN/GLOBULIN RATIO 1.1 (1.0-2.2); BILIRUBIN,TOTAL 0.6 mg/dL (0.2-1.0); CALCIUM 8.3 mg/dL (8.5-10.3); CREATININE 1.6 mg/dL (0.6-1.2)
[2019-08-18] MEDS ORDERED: DEXAMETHASONE 10 MG/ML VIAL IVP STA (10:24)
[2019-08-18 10:33] VITALS: BP 169/77
== END 2019-08-18 10:40 | disposition home or self-care (01) ==
LOC: EDUNIT# → ED 07:28
DX: N13.2 Hydronephrosis with renal and ureteral calculous obstruction (principal); E11.9 Type 2 diabetes mellitus without complications; F17.200 Nicotine dependence, unspecified, uncomplicated; Z79.4 Long term (current) use of insulin
CPT/HCPCS: 36415; 74176; 80053; 81001; 83690; 85025; 99284; 99285; J1170; J7040; 81003; 87086

== ENCOUNTER 2019-08-28 14:38 | Outpatient (CLI) | payer MEDICARE | END 2019-08-28 14:39 | disposition home or self-care (01) | LOC: LAB 14:38 | PROVIDERS: ATTEND Family Medicine | DX: E11.22 Type 2 diabetes mellitus with diabetic chronic kidney disease (principal); E11.65 Type 2 diabetes mellitus with hyperglycemia; Z79.899 Other long term (current) drug therapy | CPT/HCPCS: 36415; 80048; 83036; 85025 ==

== ENCOUNTER 2019-10-14 10:30 | Outpatient (CLI) | payer MEDICARE ==
[2019-10-14 12:03] LABS: BILIRUBIN,URINE NEGATIVE (NEGATIVE); GLUCOSE, URINE (UA) NEGATIVE (NEGATIVE); KETONES,URINE (UA) NEGATIVE (NEGATIVE); LEUKOCYTE ESTERASE, URINE TRACE (NEGATIVE); NITRITE,URINE NEGATIVE (NEGATIVE); OCCULT BLOOD,URINE LARGE (NEGATIVE); PH,URINE 5.5 PH (5.0-7.5); PROTEIN,URINE 100 mg/dL (NEGATIVE); UROBILINOGEN,URINE 0.2 (NORMAL) E.U./dL (NORMAL)
[2019-10-14 12:09] LABS: CLARITY,URINE HAZY (CLEAR)
[2019-10-14 12:15] LABS: BACTERIA,URINE Few /HPF (None Seen); RBC,URINE TNTC /HPF (0-5); SQUAMOUS EPITHELIAL CELL,UR RARE Squamous (<= Few)
== END 2019-10-14 23:59 | disposition home or self-care (01) ==
LOC: LAB.R 10:30
PROVIDERS: ATTEND Family Medicine
DX: N17.9 Acute kidney failure, unspecified (principal); E11.65 Type 2 diabetes mellitus with hyperglycemia; I10 Essential (primary) hypertension; Z79.4 Long term (current) use of insulin; F41.9 Anxiety disorder, unspecified
CPT/HCPCS: 81001; 81003; 87086

== ENCOUNTER 2019-10-14 11:41 | Outpatient (CLI) | payer MEDICARE ==
[2019-10-14 11:51] LABS: BASOPHILS # (AUTO) 0.1 10^3/uL (0.0-0.1); BASOPHILS % (AUTO) 0.7 %; EOSINOPHILS # (AUTO) 0.3 10^3/uL (0.0-0.7); EOSINOPHILS % (AUTO) 4.5 %; HGB - HEMOGLOBIN 10.2 g/dL (14.0-18.0); LYMPHOCYTES # (AUTO) 1.4 10^3/uL (1.5-3.5); LYMPHOCYTES % (AUTO) 19.5 %; MEAN CORPUSCULAR HEMOGLOBIN 30.9 pg (27.0-31.0); MEAN CORPUSCULAR HGB CONC 31.2 g/dL (32.0-36.0); MEAN CORPUSCULAR VOLUME 99.1 fL (80.0-94.0); MEAN PLATELET VOLUME 8.4 fL (7.4-11.4); MONOCYTES # (AUTO) 0.5 10^3/uL (0.0-1.0); MONOCYTES % (AUTO) 7.4 %; NEUTROPHILS # (AUTO) 4.9 10^3/uL (1.5-6.6); NEUTROPHILS % (AUTO) 67.5 %; PLT - PLATELET COUNT 234 10^3/uL (130-450); RED CELL DISTRIBUTION WIDTH 13.3 % (12.0-15.0); WHITE BLOOD COUNT 7.2 x10^3/uL (4.8-10.8)
[2019-10-14 12:05] LABS: CALCIUM 8.6 mg/dL (8.5-10.3); CREATININE 2.2 mg/dL (0.6-1.2); URIC ACID 7.8 mg/dL (2.6-7.2)
== END 2019-10-14 11:42 | disposition home or self-care (01) ==
LOC: LAB 11:41
PROVIDERS: ATTEND Family Medicine
DX: E11.65 Type 2 diabetes mellitus with hyperglycemia (principal); Z79.4 Long term (current) use of insulin; E66.9 Obesity, unspecified; E78.5 Hyperlipidemia, unspecified; N17.9 Acute kidney failure, unspecified; I10 Essential (primary) hypertension; F41.9 Anxiety disorder, unspecified
CPT/HCPCS: 36415; 80048; 81001; 84443; 84481; 84550; 85025; 87086

== ENCOUNTER 2019-11-12 15:21 | Outpatient (CLI) | payer MEDICARE ==
--- NOTE | 2019-11-13 01:50 | Ultrasound Report ---
Reason: RENAL CALCULUS LT Procedure Date: 11/12/2019 Accession Number: [id number] / [id number] Procedure: US - Retroperitoneal CPT Code: Final Report FULL RESULT: EXAM: RENAL ULTRASOUND EXAM DATE: 11/12/2019 03:30 PM. CLINICAL HISTORY: History of left renal calculus. COMPARISON: ABDOMEN/PELVIS W/O 09/26/2019 2:12 PM. TECHNIQUE: Real-time scanning was performed with static images obtained. FINDINGS: Right Kidney: 14.2 x 7.0 x 7.0 cm. Normal echotexture. There is a 1.2 cm echogenic focus in the inferior pole with posterior acoustic shadowing and twinkle artifact consistent with a calculus. No contour-deforming masses or hydronephrosis. There is a cyst in the superior pole measuring 2.0 x 2.0 x 2.1 cm. Left Kidney: 11.9 x 6.7 x 5.9 cm. Normal echotexture with no stones, contour-deforming masses, or hydronephrosis. Bladder: Linear tubular structures within the minimally distended bladder likely represent a portion of a ureteral stent. The bladder jets were not seen. The prevoid bladder volume was 42.7 cc. The postvoid bladder volume were not obtained as the patient was unable to fill his bladder. Other: None. IMPRESSION: 1. No hydronephrosis. 2. 1.2 cm right renal calculus. 3. Linear tubular structures within the bladder likely represent portions of a ureteral stent. RADIA
== END 2019-11-12 15:22 | disposition home or self-care (01) ==
LOC: DI 15:21
PROVIDERS: ATTEND Family Medicine
DX: N20.0 Calculus of kidney (principal)
CPT/HCPCS: 76770

== ENCOUNTER 2019-12-10 13:20 | Outpatient (CLI) | payer MEDICARE | END 2019-12-10 13:21 | disposition home or self-care (01) | LOC: LAB 13:20 | PROVIDERS: ATTEND Family Medicine | DX: N17.9 Acute kidney failure, unspecified (principal); E11.65 Type 2 diabetes mellitus with hyperglycemia; F41.9 Anxiety disorder, unspecified; I10 Essential (primary) hypertension; Z79.4 Long term (current) use of insulin; E66.9 Obesity, unspecified; E29.1 Testicular hypofunction | CPT/HCPCS: 36415; 81001; 81003; 84439; 87086 ==

== ENCOUNTER 2019-12-17 08:00 | Outpatient (CLI) | payer MEDICARE ==
[2019-12-17 18:00] LABS: BASOPHILS # (AUTO) 0.1 10^3/uL (0.0-0.1); EOSINOPHILS # (AUTO) 0.5 10^3/uL (0.0-0.7); EOSINOPHILS % (AUTO) 7.6 %; HGB - HEMOGLOBIN 9.7 g/dL (14.0-18.0); LYMPHOCYTES # (AUTO) 1.3 10^3/uL (1.5-3.5); LYMPHOCYTES % (AUTO) 21.5 %; MEAN CORPUSCULAR HEMOGLOBIN 31.3 pg (27.0-31.0); MEAN CORPUSCULAR HGB CONC 31.8 g/dL (32.0-36.0); MEAN CORPUSCULAR VOLUME 98.4 fL (80.0-94.0); MEAN PLATELET VOLUME 9.5 fL (7.4-11.4); MONOCYTES # (AUTO) 0.6 10^3/uL (0.0-1.0); MONOCYTES % (AUTO) 9.6 %; NEUTROPHILS # (AUTO) 3.6 10^3/uL (1.5-6.6); PLT - PLATELET COUNT 269 10^3/uL (130-450); RED CELL DISTRIBUTION WIDTH 14.9 % (12.0-15.0); WHITE BLOOD COUNT 5.9 x10^3/uL (4.8-10.8)
[2019-12-17 18:16] LABS: HB2 TOTAL 10.1 g/dL; HEMOGLOBIN A1C 0.48 g/dL; HEMOGLOBIN A1C % 6.5 % (4.6-6.2)
[2019-12-17 18:24] LABS: CALCIUM 8.5 mg/dL (8.5-10.3); CREATININE 2.4 mg/dL (0.6-1.2); URIC ACID 7.3 mg/dL (2.6-7.2)
== END 2019-12-17 23:59 | disposition home or self-care (01) ==
LOC: LAB.WCP 08:00
PROVIDERS: ATTEND Family Medicine
DX: R31.9 Hematuria, unspecified (principal); N20.0 Calculus of kidney; E11.22 Type 2 diabetes mellitus with diabetic chronic kidney disease; N18.3 Chronic kidney disease, stage 3 (moderate); E11.65 Type 2 diabetes mellitus with hyperglycemia
CPT/HCPCS: 36415; 80048; 81001; 81003; 83036; 84550; 85025; 87086

== ENCOUNTER 2019-12-22 17:30 | Outpatient (CLI) | payer MEDICARE ==
[2019-12-22 20:22] LABS: BILIRUBIN,URINE NEGATIVE (NEGATIVE); GLUCOSE, URINE (UA) 100 mg/dL (NEGATIVE); KETONES,URINE (UA) NEGATIVE (NEGATIVE); LEUKOCYTE ESTERASE, URINE SMALL (NEGATIVE); NITRITE,URINE NEGATIVE (NEGATIVE); OCCULT BLOOD,URINE LARGE (NEGATIVE); PROTEIN,URINE 100 mg/dL (NEGATIVE); UROBILINOGEN,URINE 0.2 (NORMAL) E.U./dL (NORMAL)
[2019-12-22 20:24] LABS: CLARITY,URINE BLOODY (CLEAR)
[2019-12-22 20:27] LABS: BACTERIA,URINE None Seen /HPF (None Seen); RBC,URINE TNTC /HPF (0-5); SQUAMOUS EPITHELIAL CELL,UR NONE SEEN (<= Few)
== END 2019-12-22 23:59 | disposition home or self-care (01) ==
LOC: LAB 17:30
PROVIDERS: ATTEND Family Medicine
DX: R31.9 Hematuria, unspecified (principal)
CPT/HCPCS: 81001; 81003; 87086

== ENCOUNTER 2020-02-08 08:00 | Outpatient (CLI) | payer MEDICARE ==
[2020-02-08 17:54] LABS: ABSOLUTE RETICS # AUTO 0.043 10^6/uL (0.020-0.110); BASOPHILS % (AUTO) 0.6 %; BILIRUBIN,URINE NEGATIVE (NEGATIVE); EOSINOPHILS # (AUTO) 0.2 10^3/uL (0.0-0.7); EOSINOPHILS % (AUTO) 2.8 %; GLUCOSE, URINE (UA) NEGATIVE (NEGATIVE); HGB - HEMOGLOBIN 8.6 g/dL (14.0-18.0); KETONES,URINE (UA) NEGATIVE (NEGATIVE); LEUKOCYTE ESTERASE, URINE NEGATIVE (NEGATIVE); LYMPHOCYTES # (AUTO) 0.8 10^3/uL (1.5-3.5); LYMPHOCYTES % (AUTO) 10.8 %; MEAN CORPUSCULAR HEMOGLOBIN 30.8 pg (27.0-31.0); MEAN CORPUSCULAR HGB CONC 30.6 g/dL (32.0-36.0); MEAN CORPUSCULAR VOLUME 100.7 fL (80.0-94.0); MEAN PLATELET VOLUME 10.4 fL (7.4-11.4); MONOCYTES # (AUTO) 0.6 10^3/uL (0.0-1.0); NEUTROPHILS # (AUTO) 5.6 10^3/uL (1.5-6.6); NEUTROPHILS % (AUTO) 77.4 %; NITRITE,URINE NEGATIVE (NEGATIVE); OCCULT BLOOD,URINE NEGATIVE (NEGATIVE); PLT - PLATELET COUNT 181 10^3/uL (130-450); PROTEIN,URINE 30 mg/dL (NEGATIVE); RED BLOOD COUNT 2.79 10^6/uL (4.70-6.10); RED CELL DISTRIBUTION WIDTH 14.6 % (12.0-15.0); UROBILINOGEN,URINE 0.2 (NORMAL) E.U./dL (NORMAL); WHITE BLOOD COUNT 7.2 x10^3/uL (4.8-10.8)
[2020-02-08 17:59] LABS: BACTERIA,URINE None Seen /HPF (None Seen); CLARITY,URINE CLEAR (CLEAR); RBC,URINE None Seen /HPF (0-5); SQUAMOUS EPITHELIAL CELL,UR FEW Squamous (<= Few)
[2020-02-08 18:39] LABS: FERRITIN 34.7 ng/mL (23.9-336.2)
[2020-02-08 18:42] LABS: FOLATE 16.6 ng/mL (5.90 - >24.8)
[2020-02-08 19:00] LABS: CALCIUM 7.3 mg/dL (8.5-10.3); CREATININE 4.9 mg/dL (0.6-1.2)
== END 2020-02-08 23:59 | disposition home or self-care (01) ==
LOC: LAB.WCP 08:00
PROVIDERS: ATTEND Family Medicine
DX: E11.65 Type 2 diabetes mellitus with hyperglycemia (principal); D64.9 Anemia, unspecified; R31.9 Hematuria, unspecified
CPT/HCPCS: 36415; 80048; 81001; 81003; 82607; 82728; 82746; 83540; 84466; 85025; 85045; 87086

== ENCOUNTER 2020-03-18 13:37 | Outpatient (CLI) | payer MEDICARE ==
[2020-03-18 18:52] LABS: ALBUMIN 3.8 g/dL (3.2-5.5); ALKALINE PHOSPHATASE 95 IU/L (42-121); ALT ALANINE AMINOTRANSFERASE 34 IU/L (10-60); AST ASPARTATE AMINOTRANSFERASE 23 IU/L (10-42); BILIRUBIN,TOTAL < 0.2 mg/dL (0.2-1.0); BUN - BLOOD UREA NITROGEN 55 mg/dL (6-20); CALCIUM 8.1 mg/dL (8.5-10.3); CARBON DIOXIDE - CO2 24 mmol/L (21-32); CHLORIDE 106 mmol/L (101-111); CREATININE 3.3 mg/dL (0.6-1.2); GLUCOSE 234 mg/dL (70-100); SODIUM 140 mmol/L (135-145); TOTAL PROTEIN 7.7 g/dL (6.7-8.2)
== END 2020-03-18 23:59 | disposition home or self-care (01) ==
LOC: LAB.WCP 13:37
PROVIDERS: ATTEND Family Medicine
DX: N18.5 Chronic kidney disease, stage 5 (principal)
CPT/HCPCS: 36415; 80053

== ENCOUNTER 2020-04-21 08:00 | Outpatient (CLI) | payer MEDICARE ==
[2020-04-21 18:50] LABS: CALCIUM 7.6 mg/dL (8.5-10.3)
[2020-04-21 20:08] LABS: HEMOGLOBIN A1c% 6.4 % (4.27-6.07)
== END 2020-04-21 23:59 | disposition home or self-care (01) ==
LOC: LAB.WCP 08:00
PROVIDERS: ATTEND Family Medicine
DX: N18.5 Chronic kidney disease, stage 5 (principal); E11.65 Type 2 diabetes mellitus with hyperglycemia
CPT/HCPCS: 36415; 80048; 83036

== ENCOUNTER 2020-05-19 08:00 | Outpatient (CLI) | payer MEDICARE ==
[2020-05-19 19:01] LABS: BASOPHILS # (AUTO) 0.1 10^3/uL (0.0-0.1); BASOPHILS % (AUTO) 0.9 %; EOSINOPHILS # (AUTO) 0.5 10^3/uL (0.0-0.7); EOSINOPHILS % (AUTO) 7.2 %; HGB - HEMOGLOBIN 7.8 g/dL (14.0-18.0); LYMPHOCYTES # (AUTO) 1.3 10^3/uL (1.5-3.5); LYMPHOCYTES % (AUTO) 19.6 %; MEAN CORPUSCULAR HEMOGLOBIN 31.3 pg (27.0-31.0); MEAN CORPUSCULAR HGB CONC 30.8 g/dL (32.0-36.0); MEAN CORPUSCULAR VOLUME 101.6 fL (80.0-94.0); MEAN PLATELET VOLUME 9.6 fL (7.4-11.4); MONOCYTES # (AUTO) 0.6 10^3/uL (0.0-1.0); MONOCYTES % (AUTO) 9.3 %; NEUTROPHILS # (AUTO) 4.1 10^3/uL (1.5-6.6); NEUTROPHILS % (AUTO) 62.7 %; PLT - PLATELET COUNT 229 10^3/uL (130-450); RED BLOOD COUNT 2.49 10^6/uL (4.70-6.10); RED CELL DISTRIBUTION WIDTH 14.1 % (12.0-15.0); WHITE BLOOD COUNT 6.5 x10^3/uL (4.8-10.8)
[2020-05-19 19:05] LABS: ALBUMIN 3.7 g/dL (3.2-5.5); ALBUMIN/GLOBULIN RATIO 0.9 (1.0-2.2); ALKALINE PHOSPHATASE 94 IU/L (42-121); ALT ALANINE AMINOTRANSFERASE 19 IU/L (10-60); AST ASPARTATE AMINOTRANSFERASE 23 IU/L (10-42); BILIRUBIN,TOTAL < 0.2 mg/dL (0.2-1.0); BUN - BLOOD UREA NITROGEN 55 mg/dL (6-20); CALCIUM 7.5 mg/dL (8.5-10.3); CARBON DIOXIDE - CO2 22 mmol/L (21-32); CHLORIDE 110 mmol/L (101-111); CREATININE 3.5 mg/dL (0.6-1.2); GLUCOSE 117 mg/dL (70-100); SODIUM 140 mmol/L (135-145); TOTAL PROTEIN 7.6 g/dL (6.7-8.2)
== END 2020-05-19 23:59 | disposition home or self-care (01) ==
LOC: LAB.WCP 08:00
PROVIDERS: ATTEND Family Medicine
DX: I12.9 Hypertensive chronic kidney disease with stage 1 through stage 4 chronic kidney disease, or unspecified chronic kidney disease (principal); N18.4 Chronic kidney disease, stage 4 (severe); R60.9 Edema, unspecified
CPT/HCPCS: 36415; 80053; 83880; 85025

== ENCOUNTER 2020-06-01 09:52 | Outpatient (CLI) | payer MEDICARE ==
[2020-06-01 11:41] LABS: ABSOLUTE RETICS # AUTO 0.036 10^6/uL (0.020-0.110); BASOPHILS # (AUTO) 0.1 10^3/uL (0.0-0.1); BASOPHILS % (AUTO) 0.7 %; EOSINOPHILS # (AUTO) 0.1 10^3/uL (0.0-0.7); EOSINOPHILS % (AUTO) 2.1 %; HGB - HEMOGLOBIN 8.4 g/dL (14.0-18.0); LYMPHOCYTES # (AUTO) 0.9 10^3/uL (1.5-3.5); LYMPHOCYTES % (AUTO) 12.6 %; MEAN CORPUSCULAR HEMOGLOBIN 30.3 pg (27.0-31.0); MEAN CORPUSCULAR HGB CONC 31.1 g/dL (32.0-36.0); MEAN CORPUSCULAR VOLUME 97.5 fL (80.0-94.0); MEAN PLATELET VOLUME 9.4 fL (7.4-11.4); MONOCYTES # (AUTO) 0.6 10^3/uL (0.0-1.0); MONOCYTES % (AUTO) 8.1 %; NEUTROPHILS # (AUTO) 5.2 10^3/uL (1.5-6.6); NEUTROPHILS % (AUTO) 76.4 %; PLT - PLATELET COUNT 238 10^3/uL (130-450); RED BLOOD COUNT 2.77 10^6/uL (4.70-6.10); RED CELL DISTRIBUTION WIDTH 13.2 % (12.0-15.0); WHITE BLOOD COUNT 6.8 x10^3/uL (4.8-10.8)
[2020-06-01 12:30] LABS: FERRITIN 23.5 ng/mL (23.9-336.2)
[2020-06-01 12:34] LABS: FOLATE 14.6 ng/mL (5.90 - >24.8)
[2020-06-01 12:49] LABS: % IRON SATURATION 13 % (20-50); IRON 44 ug/dL (45-182); TOTAL IRON BINDING CAPACITY 336 ug/dL (250-450); TRANSFERRIN 240 mg/dL (180-329)
== END 2020-06-01 23:59 | disposition home or self-care (01) ==
LOC: LAB.WCP 09:52
PROVIDERS: ATTEND Family Medicine
DX: R60.9 Edema, unspecified (principal); N18.5 Chronic kidney disease, stage 5; D63.1 Anemia in chronic kidney disease
CPT/HCPCS: 36415; 82607; 82728; 82746; 83540; 84466; 85025; 85045

== ENCOUNTER 2020-08-08 08:00 | Outpatient (CLI) | payer MEDICARE ==
[2020-08-08 17:58] LABS: BASOPHILS # (AUTO) 0.1 10^3/uL (0.0-0.1); EOSINOPHILS # (AUTO) 0.4 10^3/uL (0.0-0.7); EOSINOPHILS % (AUTO) 6.8 %; HGB - HEMOGLOBIN 9.8 g/dL (14.0-18.0); LYMPHOCYTES # (AUTO) 1.8 10^3/uL (1.5-3.5); LYMPHOCYTES % (AUTO) 29.3 %; MEAN CORPUSCULAR HEMOGLOBIN 30.8 pg (27.0-31.0); MEAN CORPUSCULAR VOLUME 96.2 fL (80.0-94.0); MEAN PLATELET VOLUME 10.1 fL (7.4-11.4); MONOCYTES # (AUTO) 0.6 10^3/uL (0.0-1.0); MONOCYTES % (AUTO) 10.7 %; NEUTROPHILS # (AUTO) 3.1 10^3/uL (1.5-6.6); PLT - PLATELET COUNT 242 10^3/uL (130-450); RED BLOOD COUNT 3.18 10^6/uL (4.70-6.10); RED CELL DISTRIBUTION WIDTH 14.7 % (12.0-15.0)
[2020-08-08 18:06] LABS: CREATININE 4.1 mg/dL (0.6-1.2)
[2020-08-08 20:01] LABS: HEMOGLOBIN A1c% 9.2 % (4.27-6.07)
== END 2020-08-08 23:59 | disposition home or self-care (01) ==
LOC: LAB.WCP 08:00
PROVIDERS: ATTEND Family Medicine
DX: D64.9 Anemia, unspecified (principal); E66.9 Obesity, unspecified; N18.4 Chronic kidney disease, stage 4 (severe); E11.8 Type 2 diabetes mellitus with unspecified complications; F13.20 Sedative, hypnotic or anxiolytic dependence, uncomplicated; F41.0 Panic disorder [episodic paroxysmal anxiety]
CPT/HCPCS: 36415; 80048; 83036; 85025

== ENCOUNTER 2020-10-10 08:00 | Outpatient (CLI) | payer MEDICARE ==
[2020-10-10 18:10] LABS: CALCIUM 8.1 mg/dL (8.5-10.3); CREATININE 4.5 mg/dL (0.6-1.2)
[2020-10-10 20:26] LABS: ESTIMATED AVERAGE GLUCOSE 154 mg/dL (70-100)
== END 2020-10-10 23:59 | disposition home or self-care (01) ==
LOC: LAB.WCP 08:00
PROVIDERS: ATTEND Family Medicine
DX: E11.22 Type 2 diabetes mellitus with diabetic chronic kidney disease (principal); N18.4 Chronic kidney disease, stage 4 (severe); E11.8 Type 2 diabetes mellitus with unspecified complications
CPT/HCPCS: 36415; 80048; 83036

== ENCOUNTER 2021-02-16 08:00 | Outpatient (CLI) | payer MEDICARE ==
[2021-02-16 13:14] LABS: BASOPHILS # (AUTO) 0.1 10^3/uL (0.0-0.1); BASOPHILS % (AUTO) 0.5 %; EOSINOPHILS # (AUTO) 0.3 10^3/uL (0.0-0.7); EOSINOPHILS % (AUTO) 2.5 %; HGB - HEMOGLOBIN 7.5 g/dL (14.0-18.0); LYMPHOCYTES # (AUTO) 0.9 10^3/uL (1.5-3.5); LYMPHOCYTES % (AUTO) 8.7 %; MEAN CORPUSCULAR HEMOGLOBIN 31.5 pg (27.0-31.0); MEAN CORPUSCULAR HGB CONC 31.3 g/dL (32.0-36.0); MEAN CORPUSCULAR VOLUME 100.8 fL (80.0-94.0); MEAN PLATELET VOLUME 10.2 fL (7.4-11.4); MONOCYTES # (AUTO) 0.7 10^3/uL (0.0-1.0); MONOCYTES % (AUTO) 6.6 %; NEUTROPHILS # (AUTO) 8.3 10^3/uL (1.5-6.6); PLT - PLATELET COUNT 308 10^3/uL (130-450); RED BLOOD COUNT 2.38 10^6/uL (4.70-6.10); RED CELL DISTRIBUTION WIDTH 13.8 % (12.0-15.0); WHITE BLOOD COUNT 10.2 x10^3/uL (4.8-10.8)
[2021-02-16 13:30] LABS: ESTIMATED AVERAGE GLUCOSE 160 mg/dL (70-100); HEMOGLOBIN A1c% 7.2 % (4.27-6.07)
[2021-02-16 14:17] LABS: CALCIUM 7.9 mg/dL (8.5-10.3); CREATININE 3.6 mg/dL (0.6-1.2); POTASSIUM 4.8 mmol/L (3.5-5.0)
== END 2021-02-16 23:59 | disposition home or self-care (01) ==
LOC: LAB.WCP 08:00
PROVIDERS: ATTEND Family Medicine
DX: N20.0 Calculus of kidney (principal); E66.9 Obesity, unspecified; E11.42 Type 2 diabetes mellitus with diabetic polyneuropathy; E11.22 Type 2 diabetes mellitus with diabetic chronic kidney disease; N18.4 Chronic kidney disease, stage 4 (severe)
CPT/HCPCS: 36415; 80048; 83036; 84550; 85025

== ENCOUNTER 2021-03-28 13:40 | Outpatient (CLI) | payer MEDICARE ==
[2021-03-28 14:10] LABS: CALCIUM 8.2 mg/dL (8.5-10.3); CREATININE 3.7 mg/dL (0.6-1.2); POTASSIUM 5.1 mmol/L (3.5-5.0); URIC ACID 5.9 mg/dL (2.6-7.2)
[2021-03-28 14:32] LABS: ESTIMATED AVERAGE GLUCOSE 163 mg/dL (70-100); HEMOGLOBIN A1c% 7.3 % (4.27-6.07)
== END 2021-03-28 13:41 | disposition home or self-care (01) ==
LOC: DI 13:40
PROVIDERS: ATTEND Family Medicine
DX: E11.40 Type 2 diabetes mellitus with diabetic neuropathy, unspecified (principal); E11.22 Type 2 diabetes mellitus with diabetic chronic kidney disease; N18.5 Chronic kidney disease, stage 5; E79.0 Hyperuricemia without signs of inflammatory arthritis and tophaceous disease; S42.301S Unspecified fracture of shaft of humerus, right arm, sequela; Z53.9 Procedure and treatment not carried out, unspecified reason
CPT/HCPCS: 36415; 80048; 83036; 84550

== ENCOUNTER 2021-04-21 15:42 | Outpatient (CLI) | payer MEDICARE ==
--- NOTE | 2021-04-21 17:19 | XRAY Report ---
PROCEDURE: Shoulder 3 View RT INDICATIONS: FRACTURE OF RIGHT HUMERUS TECHNIQUE: 3 views of the shoulder were acquired. COMPARISON: None. FINDINGS: Bones: There is a healing fracture involving proximal humeral shaft/surgical neck with exuberant surr ounding callus formation. Impaction at humeral neck fracture site is seen. No acute fracture or dislo cation. Moderate acromioclavicular joint and glenohumeral joint osteoarthritic changes are noted. No suspicious bony lesions. Visualized ribs appear intact. Soft tissues: No suspicious soft tissue calcifications. IMPRESSION: Healing proximal humeral shaft/surgical neck fracture with near-anatomic alignment. Mode rate shoulder joint osteoarthritis. Reviewed by: Beka Sapp MD on 04/21/2021 5:18 PM PDT Approved by: Beka Sapp MD on 04/21/2021 5:18 PM PDT Station ID: [id number]
== END 2021-04-21 15:43 | disposition home or self-care (01) ==
LOC: DI 15:42
PROVIDERS: ATTEND Family Medicine
DX: S42.211D Unspecified displaced fracture of surgical neck of right humerus, subsequent encounter for fracture with routine healing (principal); S42.301D Unspecified fracture of shaft of humerus, right arm, subsequent encounter for fracture with routine healing; M19.011 Primary osteoarthritis, right shoulder

== ENCOUNTER 2021-05-25 14:53 | Outpatient (CLI) | payer MEDICARE ==
[2021-05-25 18:30] LABS: CALCIUM 8.2 mg/dL (8.5-10.3); CREATININE 3.6 mg/dL (0.6-1.2); PHOSPHORUS 5.2 mg/dL (2.5-4.6); POTASSIUM 4.9 mmol/L (3.5-5.0)
[2021-05-25 21:00] LABS: ESTIMATED AVERAGE GLUCOSE 146 mg/dL (70-100); HEMOGLOBIN A1c% 6.7 % (4.27-6.07)
== END 2021-05-25 23:59 | disposition home or self-care (01) ==
LOC: LAB.WCP 14:53
PROVIDERS: ATTEND Family Medicine
DX: E11.42 Type 2 diabetes mellitus with diabetic polyneuropathy (principal); E66.9 Obesity, unspecified; E11.22 Type 2 diabetes mellitus with diabetic chronic kidney disease; N18.4 Chronic kidney disease, stage 4 (severe)
CPT/HCPCS: 36415; 80048; 80053; 82248; 82803; 83036; 83735; 84100; 84484; 85025; 85610; 85730

== ENCOUNTER 2021-10-13 13:51 | Outpatient (CLI) | payer MEDICARE ==
[2021-10-13 14:10] LABS: BASOPHILS # (AUTO) 0.1 10^3/uL (0.0-0.1); BASOPHILS % (AUTO) 1.2 %; EOSINOPHILS # (AUTO) 0.4 10^3/uL (0.0-0.7); EOSINOPHILS % (AUTO) 6.7 %; HCT - HEMATOCRIT 26.7 % (42.0-52.0); HGB - HEMOGLOBIN 8.5 g/dL (14.0-18.0); LYMPHOCYTES # (AUTO) 1.2 10^3/uL (1.5-3.5); LYMPHOCYTES % (AUTO) 19.7 %; MEAN CORPUSCULAR HEMOGLOBIN 32.2 pg (27.0-31.0); MEAN CORPUSCULAR HGB CONC 31.8 g/dL (32.0-36.0); MEAN CORPUSCULAR VOLUME 101.1 fL (80.0-94.0); MEAN PLATELET VOLUME 9.4 fL (7.4-11.4); MONOCYTES # (AUTO) 0.5 10^3/uL (0.0-1.0); MONOCYTES % (AUTO) 8.7 %; NEUTROPHILS # (AUTO) 3.9 10^3/uL (1.5-6.6); NEUTROPHILS % (AUTO) 63.4 %; PLT - PLATELET COUNT 186 10^3/uL (130-450); RED BLOOD COUNT 2.64 10^6/uL (4.70-6.10); RED CELL DISTRIBUTION WIDTH 14.6 % (12.0-15.0); WHITE BLOOD COUNT 6.1 x10^3/uL (4.8-10.8)
[2021-10-13 14:30] LABS: ALBUMIN 3.7 g/dL (3.2-5.5); ALBUMIN/GLOBULIN RATIO 1.1 (1.0-2.2); ALKALINE PHOSPHATASE 91 IU/L (42-121); ALT ALANINE AMINOTRANSFERASE 11 IU/L (10-60); AST ASPARTATE AMINOTRANSFERASE 14 IU/L (10-42); BILIRUBIN,TOTAL 0.8 mg/dL (0.2-1.0); BUN - BLOOD UREA NITROGEN 47 mg/dL (6-20); CALCIUM 6.7 mg/dL (8.5-10.3); CARBON DIOXIDE - CO2 23 mmol/L (21-32); CHLORIDE 108 mmol/L (101-111); CHOL/HDL RATIO 3.2 (<5.0); CHOLESTEROL 143 mg/dL; CREATININE 3.4 mg/dL (0.6-1.2); GFR - MDRD 18 (>89); GLUCOSE 159 mg/dL (70-100); HDL CHOLESTEROL 45 mg/dL; LDL CHOLESTEROL,CALCULATED 82 mg/dL; LDL/HDL RATIO 1.8 (<3.6); POTASSIUM 4.7 mmol/L (3.5-5.0); SODIUM 140 mmol/L (135-145); TRIGLYCERIDES 79 mg/dL; VLDL CHOLESTEROL 16 mg/dL
[2021-10-13 14:40] LABS: THYROID STIMULATING HORMONE 1.49 uIU/mL (0.34-5.60)
[2021-10-13 20:20] LABS: ESTIMATED AVERAGE GLUCOSE 146 mg/dL (70-100); HEMOGLOBIN A1c% 6.7 % (4.27-6.07)
== END 2021-10-13 13:52 | disposition home or self-care (01) ==
LOC: LAB 13:51
PROVIDERS: ATTEND Family Medicine
DX: E11.42 Type 2 diabetes mellitus with diabetic polyneuropathy (principal); E11.22 Type 2 diabetes mellitus with diabetic chronic kidney disease; I12.9 Hypertensive chronic kidney disease with stage 1 through stage 4 chronic kidney disease, or unspecified chronic kidney disease; N18.4 Chronic kidney disease, stage 4 (severe); E78.5 Hyperlipidemia, unspecified
CPT/HCPCS: 36415; 80053; 80061; 82043; 82570; 83036; 83721; 84443; 85025

== ENCOUNTER 2021-10-15 10:38 | Outpatient (CLI) | payer MEDICARE ==
[2021-10-15 12:34] LABS: CREATININE,URINE 70.8 mg/dL; MICROALBUM/CREATININE RATIO,UR 539.5 ug/mg (<30.0); MICROALBUMIN,URINE 38.2 mg/dL (0-300.0)
== END 2021-10-15 23:59 | disposition home or self-care (01) ==
LOC: LAB 10:38
PROVIDERS: ATTEND Family Medicine
DX: E11.42 Type 2 diabetes mellitus with diabetic polyneuropathy (principal); E11.22 Type 2 diabetes mellitus with diabetic chronic kidney disease; I12.0 Hypertensive chronic kidney disease with stage 5 chronic kidney disease or end stage renal disease; N18.4 Chronic kidney disease, stage 4 (severe); E78.5 Hyperlipidemia, unspecified
CPT/HCPCS: 82043; 82570

== ENCOUNTER 2022-02-03 04:50 | Emergency (ER) | payer MEDICARE ==
--- NOTE | 2022-02-03 05:54 | ED Physician Documentation ---
PD HPI BACK PAIN - Stated complaint Stated Complaint: Back pain, possible kidney stone - Chief complaint Chief Complaint: Abd Pain - History obtained from History obtained from: Patient - History of Present Illness Timing - onset: How many hours ago (2) Timing - details: Abrupt onset, Waxing and waning Pain level now: 8 Location: Lower, Right Quality: Pain Associated symptoms: No: Fever Improves with: Nothing Worsened by: Other (no exacerbating factors) Similar symptoms before: Has not had sx before Review of Systems Constitutional: denies: Fever, Chills GI: reports: Nausea. denies: Abdominal Pain, Vomiting, Constipation, Diarrhea : denies: Dysuria, Frequency, Hematuria Musculoskeletal: reports: Back pain PD PAST MEDICAL HISTORY - Past Medical History Cardiovascular: Hypertension Respiratory: None Neuro: None Endocrine/Autoimmune: Type 2 diabetes : Kidney stones Psych: Anxiety Musculoskeletal: None Derm: None - Past Surgical History Past Surgical History: Yes - Present Medications Home Medications: Ambulatory Orders Medication Instructions Recorded Confirmed Insulin Aspart (Vial) [NovoLOG] 18 unit SQ AC 09/05/13 09/25/19 Insulin Glargine [Lantus] 28 unit SUBQ QPM 09/05/13 09/25/19 Lisinopril 10 mg PO DAILY 09/05/13 09/25/19 Oxycodone HCl/Acetaminophen 1 tab PO Q4H PRN 09/05/13 09/25/19 [Percocet 10-325 mg Tablet] oxyCODONE ER [OxyCONTIN] 160 mg PO BID 09/05/13 09/25/19 Lorazepam [Ativan] 1 mg PO TID PRN 09/25/19 09/25/19 Metformin HCl 500 mg PO BIDWM 09/25/19 09/25/19 Pravastatin Sodium 80 mg PO QPM 09/25/19 09/25/19 Sertraline [Zoloft] 50 mg PO DAILY 09/25/19 09/25/19 - Allergies Allergies/Adverse Reactions: Allergies Allergy/AdvReac Type Severity Reaction Status Date / Time No Known Drug Allergies Allergy Verified 02/03/22 05:38 - Social History Does the pt smoke?: No Smoking Status: Current some day smoker Does the pt drink ETOH?: No Does the pt have substance abuse?: No - Immunizations Immunizations are current?: No - POLST Patient has POLST: No PD ED PE NORMAL - Cardiac Cardiac: RRR, No murmur - Respiratory Respiratory: No respiratory distress, Clear bilaterally - Abdomen Abdomen: Soft, Non tender - Back Back: No CVA TTP - Derm Derm: No rash Results - Vitals Vitals: Oxygen O2 Source Room air - Labs Labs: Laboratory Tests 02/03/22 02/03/22 02/03/22 05:52 05:52 06:44 WBC 11.9 H RBC 2.96 L Hgb 9.4 L Hct 29.4 L MCV 99.3 H MCH 31.8 H MCHC 32.0 RDW 13.6 Plt Count 179 MPV 10.3 Neut # (Auto) 9.1 H Lymph # (Auto) 1.2 L Frontier # (Auto) 1.0 Eos # (Auto) 0.6 Baso # (Auto) 0.1 Absolute Nucleated RBC 0.00 Nucleated RBC % 0.0 Sodium 135 Potassium 4.7 Chloride 103 Carbon Dioxide 21 Anion Gap 11.0 BUN 66 H Creatinine 3.9 H Estimated GFR (MDRD) 15 L Glucose 213 H Calcium 7.2 L Total Bilirubin 0.4 AST 26 ALT 25 Alkaline Phosphatase 83 Total Protein 7.2 Albumin 4.0 Globulin 3.2 Albumin/Globulin Ratio 1.3 Lipase 32 Urine Color STRAW Urine Clarity CLEAR Urine pH 6.0 Ur Specific B[place] 1.015 Urine Protein 30 H Urine Glucose (UA) 250 H Urine Ketones NEGATIVE Urine Occult Blood TRACE-INTA Urine Nitrite NEGATIVE Urine Bilirubin NEGATIVE Urine Urobilinogen 0.2 (NORMAL) Ur Leukocyte Esterase NEGATIVE Urine RBC 0-5 Urine WBC 0-3 Ur Squamous Epith Cells RARE Squamous Urine Bacteria None Seen Ur Microscopic Review INDICATED Urine Culture Comments NOT INDICATED - Rads (name of study) CT A/P Radiology: Prelim report reviewed, See rad report PD MEDICAL DECISION MAKING - ED course Complexity details: reviewed results, re-evaluated patient, considered differential, d/w patient ED course: presents with 2 hours of waxing and waning right flank pain, CT demonstrates obstructing distal right ureteral calculi (two are seen, 2mm and 3mm). Pain resolved with IV dilaudid (only required one dose). Results d/w patient. He is already on tamsulosin (I note a filled rx from earlier this month for tamsulosin 90 day supply). He is also on a daily regimen of regularly prescribed pain medication for chronic pain (both oxycontin and oxycodone), and thus I did not provide rx for opiate medications. return precautions discussed. Departure - Departure Disposition: 01 Home, Self Care Clinical Impression: Renal colic on right side Condition: Good Instructions: ED Stone Renal W Colic Follow-Up: Christian Colon MD [Primary Care Provider] - Comments: The CT scan shows two small kidney stones in the right ureter causing some blockage and this is causing your pain. These are small kidney stones and will likely pass within the next several days. Discharge Date/Time: 02/03/22 09:00
[2022-02-03 05:59] LABS: BASOPHILS # (AUTO) 0.1 10^3/uL (0.0-0.1); BASOPHILS % (AUTO) 0.5 %; EOSINOPHILS # (AUTO) 0.6 10^3/uL (0.0-0.7); EOSINOPHILS % (AUTO) 4.7 %; HCT - HEMATOCRIT 29.4 % (42.0-52.0); HGB - HEMOGLOBIN 9.4 g/dL (14.0-18.0); LYMPHOCYTES # (AUTO) 1.2 10^3/uL (1.5-3.5); LYMPHOCYTES % (AUTO) 9.9 %; MEAN CORPUSCULAR HEMOGLOBIN 31.8 pg (27.0-31.0); MEAN CORPUSCULAR VOLUME 99.3 fL (80.0-94.0); MEAN PLATELET VOLUME 10.3 fL (7.4-11.4); MONOCYTES % (AUTO) 8.3 %; NEUTROPHILS # (AUTO) 9.1 10^3/uL (1.5-6.6); NEUTROPHILS % (AUTO) 76.4 %; PLT - PLATELET COUNT 179 10^3/uL (130-450); RED BLOOD COUNT 2.96 10^6/uL (4.70-6.10); RED CELL DISTRIBUTION WIDTH 13.6 % (12.0-15.0); WHITE BLOOD COUNT 11.9 x10^3/uL (4.8-10.8)
[2022-02-03] MEDS ORDERED: HYDROmorphone 1 MG/ML CARPUJECT IM STA (06:00)
[2022-02-03] MEDS ORDERED: ONDANSETRON ODT 4 MG TABLET TL STA (06:00)
[2022-02-03 06:12] LABS: ALBUMIN/GLOBULIN RATIO 1.3 (1.0-2.2); BILIRUBIN,TOTAL 0.4 mg/dL (0.2-1.0); CALCIUM 7.2 mg/dL (8.5-10.3); CREATININE 3.9 mg/dL (0.6-1.2); POTASSIUM 4.7 mmol/L (3.5-5.0); TOTAL PROTEIN 7.2 g/dL (6.7-8.2)
[2022-02-03 07:24] LABS: BILIRUBIN,URINE NEGATIVE (NEGATIVE); GLUCOSE, URINE (UA) 250 mg/dL (NEGATIVE); KETONES,URINE (UA) NEGATIVE (NEGATIVE); LEUKOCYTE ESTERASE, URINE NEGATIVE (NEGATIVE); NITRITE,URINE NEGATIVE (NEGATIVE); OCCULT BLOOD,URINE TRACE-INTA (NEGATIVE); PROTEIN,URINE 30 mg/dL (NEGATIVE); UROBILINOGEN,URINE 0.2 (NORMAL) E.U./dL (NORMAL)
[2022-02-03 07:41] LABS: BACTERIA,URINE None Seen /HPF (None Seen); CLARITY,URINE CLEAR (CLEAR); RBC,URINE 0-5 /HPF (0-5); SQUAMOUS EPITHELIAL CELL,UR RARE Squamous (<= Few); WBC,URINE 0-3 /HPF (0-3)
--- NOTE | 2022-02-03 08:08 | CT Report ---
PROCEDURE: Abdomen/Pelvis WO INDICATIONS: right flank pain TECHNIQUE: Noncontrast 5 mm thick sections acquired from the diaphragms to the symphysis. 5 mm coronal and sagi ttal reformats were then performed. For radiation dose reduction, the following was used: automated exposure control, adjustment of mA and/or kV according to patient size. COMPARISON: 09/26/2019 FINDINGS: Image quality: Excellent. ABDOMEN: Lung bases: Basilar atelectasis with small left-sided pleural effusion. Heart size is normal. Valle ry vascular calcifications. Solid organs: Liver is unremarkable. Calcifications within the spleen likely representing sequela of remote granulomatous disease. Gallbladder is distended, otherwise unremarkable. Pancreas is normal i n contours. No adrenal nodules. There is right greater than left perinephric inflammation. Within th e limits of this exam there is no suspicious mass. There is bilateral nephroliths. Within the distal right ureter there is 2 separate adjacent calcifications measuring 3 and 2 mm. This is approximately 3-4 cm from the UVJ. There is moderate right-sided hydroureteronephrosis. Peritoneum and bowel: Unenhanced bowel loops demonstrate normal wall thickness and caliber. No free fluid or air. Scattered colonic diverticula. Nodes and vessels: No retroperitoneal or mesenteric adenopathy by size criteria. Aorta and inferior vena cava are normal in caliber. Diffuse vascular calcification. Miscellaneous: No ventral hernias. PELVIS: Genitourinary: Bladder wall thickness is normal. No calcifications. Miscellaneous: No inguinal hernias or adenopathy. Bones: Degenerative changes with multiple levels of listhesis of the spine. Lucent lesion within the vertebral body of L3 likely representing a large Schmorl's node. No acute osseous abnormality or aggr essive appearing osseous lesion. Moderate degenerative changes of the hips are also noted. No vertebr al body compression fractures. IMPRESSION: Obstructing 3 and 2 mm calcifications within the distal right ureter resulting in moderate hydrourete ronephrosis. Multiple additional nonobstructing nephroliths. Reviewed by: Lewis Weber DO on 02/03/2022 7:07 AM [facility]AS Approved by: Lewis Weber DO on 02/03/2022 7:07 AM L[facility] Station ID: [id number]
[2022-02-03 09:17] VITALS: BP 168/76
== END 2022-02-03 09:00 | disposition home or self-care (01) ==
LOC: ED 04:50
DX: N13.2 Hydronephrosis with renal and ureteral calculous obstruction (principal); I10 Essential (primary) hypertension; E11.9 Type 2 diabetes mellitus without complications; Z79.4 Long term (current) use of insulin; F17.200 Nicotine dependence, unspecified, uncomplicated
CPT/HCPCS: 36415; 74176; 80053; 81001; 83690; 85025; 96372; 99284; J1170; Q0162; 81003; 87086

== ENCOUNTER 2022-04-10 10:50 | Outpatient (CLI) | payer MEDICARE ==
--- NOTE | 2022-04-11 08:43 | XRAY Report ---
PROCEDURE: Abdomen 1 View X-Ray INDICATIONS: Kidney stones TECHNIQUE: One view of the abdomen acquired. COMPARISON: 02/03/2022 CT abdomen and pelvis. FINDINGS: Exam limited by body habitus. Previously seen right upper pole calculi are faintly redemonstrated. Le ft renal calculi seen on the prior CT are also faintly redemonstrated. No plain radiographic evidence of the right ureteral calculus seen on the comparison CT. IMPRESSION: Bilateral renal calculi as seen on comparison CT. Reviewed by: Cristobal Uribe MD on 04/11/2022 8:41 AM PDT Approved by: Cristobal Uribe MD on 04/11/2022 8:41 AM PDT Station ID: [id number]
== END 2022-04-10 10:51 | disposition home or self-care (01) ==
LOC: DI 10:50
PROVIDERS: ATTEND Urology
DX: N20.0 Calculus of kidney (principal)

== ENCOUNTER 2022-05-23 09:56 | Outpatient (CLI) | payer MEDICARE ==
[2022-05-23 10:08] LABS: BASOPHILS # (AUTO) 0.1 10^3/uL (0.0-0.1); BASOPHILS % (AUTO) 0.9 %; EOSINOPHILS # (AUTO) 0.2 10^3/uL (0.0-0.7); EOSINOPHILS % (AUTO) 4.1 %; HCT - HEMATOCRIT 26.9 % (42.0-52.0); HGB - HEMOGLOBIN 8.9 g/dL (14.0-18.0); LYMPHOCYTES # (AUTO) 1.1 10^3/uL (1.5-3.5); LYMPHOCYTES % (AUTO) 21.4 %; MEAN CORPUSCULAR HGB CONC 33.1 g/dL (32.0-36.0); MEAN CORPUSCULAR VOLUME 99.6 fL (80.0-94.0); MEAN PLATELET VOLUME 9.4 fL (7.4-11.4); MONOCYTES # (AUTO) 0.4 10^3/uL (0.0-1.0); MONOCYTES % (AUTO) 7.5 %; NEUTROPHILS # (AUTO) 3.5 10^3/uL (1.5-6.6); NEUTROPHILS % (AUTO) 65.9 %; PLT - PLATELET COUNT 144 10^3/uL (130-450); RED CELL DISTRIBUTION WIDTH 14.7 % (12.0-15.0); WHITE BLOOD COUNT 5.3 x10^3/uL (4.8-10.8)
[2022-05-23 10:35] LABS: ALBUMIN 4.2 g/dL (3.2-5.5); ALBUMIN/GLOBULIN RATIO 1.3 (1.0-2.2); ALKALINE PHOSPHATASE 77 IU/L (42-121); ALT ALANINE AMINOTRANSFERASE 16 IU/L (10-60); AST ASPARTATE AMINOTRANSFERASE 20 IU/L (10-42); BILIRUBIN,TOTAL 0.4 mg/dL (0.2-1.0); BUN - BLOOD UREA NITROGEN 60 mg/dL (6-20); CALCIUM 7.4 mg/dL (8.5-10.3); CARBON DIOXIDE - CO2 21 mmol/L (21-32); CHLORIDE 105 mmol/L (101-111); CHOL/HDL RATIO 2.5 (<5.0); CHOLESTEROL 122 mg/dL; GFR - MDRD 15 (>89); GLUCOSE 167 mg/dL (70-100); HDL CHOLESTEROL 48 mg/dL; LDL CHOLESTEROL,CALCULATED 63 mg/dL; LDL/HDL RATIO 1.3 (<3.6); POTASSIUM 4.3 mmol/L (3.5-5.0); SODIUM 138 mmol/L (135-145); TOTAL PROTEIN 7.5 g/dL (6.7-8.2); TRIGLYCERIDES 55 mg/dL; VLDL CHOLESTEROL 11 mg/dL
[2022-05-23 10:38] LABS: THYROID STIMULATING HORMONE 3.13 uIU/mL (0.34-5.60)
[2022-05-23 12:08] LABS: CREATININE,URINE 90.6 mg/dL; MICROALBUM/CREATININE RATIO,UR 662.3 ug/mg (<30.0)
[2022-05-23 12:34] LABS: ESTIMATED AVERAGE GLUCOSE 137 mg/dL (70-100); HEMOGLOBIN A1c% 6.4 % (4.27-6.07)
== END 2022-05-23 09:57 | disposition home or self-care (01) ==
LOC: LAB 09:56
PROVIDERS: ATTEND Family Medicine
DX: E11.22 Type 2 diabetes mellitus with diabetic chronic kidney disease (principal); N18.4 Chronic kidney disease, stage 4 (severe); E79.0 Hyperuricemia without signs of inflammatory arthritis and tophaceous disease; E11.42 Type 2 diabetes mellitus with diabetic polyneuropathy; F13.20 Sedative, hypnotic or anxiolytic dependence, uncomplicated
CPT/HCPCS: 36415; 80053; 80061; 82043; 82570; 83036; 83721; 84443; 85025

== ENCOUNTER 2022-10-23 22:54 | Emergency (ER) | payer MEDICARE ==
[2022-10-23] MEDS: LORazepam 1 MG TABLET PO STA (23:30)
--- NOTE | 2022-10-23 23:41 | ED Physician Documentation ---
History of Present Illness - Stated complaint Stated Complaint: LORAZEPAM W/D - Chief complaint Chief Complaint: General - History obtained from History obtained from: Patient - Additonal information Additional information: 72-year-old man with history of longstanding anxiety on 3 times daily 1 mg Ativan presents after forgetting to fill his medication. He has been shaking and is extremely uncomfortable, requesting a single dose of his Ativan until he can fill his prescription tomorrow morning. Otherwise without issue. Review of Systems Constitutional: denies: Fever Eyes: denies: Loss of vision Cardiac: denies: Chest pain / pressure Respiratory: denies: Dyspnea PD PAST MEDICAL HISTORY - Past Medical History Cardiovascular: Hypertension Respiratory: None Neuro: None Endocrine/Autoimmune: Type 2 diabetes : Kidney stones Psych: Anxiety Musculoskeletal: None Derm: None - Past Surgical History Past Surgical History: Yes - Present Medications Home Medications: Ambulatory Orders Medication Instructions Recorded Confirmed Insulin Aspart (Vial) [NovoLOG] 18 unit SQ AC 09/05/13 09/25/19 Insulin Glargine [Lantus] 28 unit SUBQ QPM 09/05/13 09/25/19 Lisinopril 10 mg PO DAILY 09/05/13 09/25/19 Oxycodone HCl/Acetaminophen 1 tab PO Q4H PRN 09/05/13 09/25/19 [Percocet 10-325 mg Tablet] oxyCODONE ER [OxyCONTIN] 160 mg PO BID 09/05/13 09/25/19 Lorazepam [Ativan] 1 mg PO TID PRN 09/25/19 09/25/19 Metformin HCl 500 mg PO BIDWM 09/25/19 09/25/19 Pravastatin Sodium 80 mg PO QPM 09/25/19 09/25/19 Sertraline [Zoloft] 50 mg PO DAILY 09/25/19 09/25/19 - Allergies Allergies/Adverse Reactions: Allergies Allergy/AdvReac Type Severity Reaction Status Date / Time No Known Drug Allergies Allergy Verified 10/23/22 23:05 - Social History Does the pt smoke?: No Smoking Status: Never smoker Does the pt drink ETOH?: No Does the pt have substance abuse?: No - Immunizations Immunizations are current?: No - POLST Patient has POLST: No PD ED PE NORMAL - Vitals Vital signs reviewed: Yes - General General: Alert and oriented X 3, No acute distress, Well developed/nourished - HEENT HEENT: Atraumatic, PERRL, EOMI - Neck Neck: Supple, no meningeal sign - Cardiac Cardiac: RRR - Respiratory Respiratory: No respiratory distress, Clear bilaterally - Abdomen Abdomen: Non tender, Non distended - Derm Derm: Normal color - Extremities Extremities: No deformity, Normal ROM s pain, Other (Bilateral DP pulses intact) - Neuro Neuro: No motor deficit, No sensory deficit Results - Vitals Vitals: Vital Signs - 24 hr 10/23/22 10/23/22 23:00 23:05 Temperature 36.5 C Heart Rate 85 96 Respiratory 18 Rate Blood Pressure 151/74 H 169/85 H O2 Saturation 96 99 Oxygen O2 Source Room air PD Medical Decision Making - ED course ED course: 72-year-old man presented with request for his long standing antianxiety medication which he was unable to fill today. Ativan was provided and he had significant relief of shaking and discomfort. He will fill his medication in the morning. Departure - Departure Disposition: 01 Home, Self Care Clinical Impression: Anxiety Condition: Good Instructions: Anxiety Disorder Comments: You are seen in the emergency department for shaking related to your anxiety and not having your medication. I provided a dose of Ativan here in the emergency department and you can follow-up with your primary care provider tomorrow. Return to the emergency department for new or worsening symptoms or other concer ns.
[2022-10-23] MEDS: KETOROLAC 15 MG/ML VIAL IM STA (23:47)
[2022-10-23 23:58] VITALS: BP 144/78
== END 2022-10-23 23:58 | disposition home or self-care (01) ==
LOC: ED 22:54
DX: F41.9 Anxiety disorder, unspecified (principal)
CPT/HCPCS: 96372; 99282; 99283; J8499

== ENCOUNTER 2022-10-25 19:25 | Outpatient (CLI) | payer MEDICARE | END 2022-10-25 19:26 | disposition E | LOC: EMS 19:25 ==